=== PATIENT | female | born 2000 | race Caucasian/White ===

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

== ENCOUNTER 2022-04-04 12:20 | Outpatient (CLI) | payer MEDICAID, SELFPAY ==
--- NOTE | 2022-04-04 12:35 | XR_ITS ---
WS: [id number] XR shoulder LT min 2V* [id number] REASON FOR EXAM: L SHOULDER PAIN FINDINGS: There is slight superior displacement of the distal clavicle in relation to the acromial process whic h could indicate a grade 2 AC separation. No fracture of the clavicle or acromial process. Glenohumeral joint is intact. No fracture of the glenoid or humerus. The scapula is intact. XR/XR shoulder LT min 2V* [id number] IMPRESSION: Possible grade 2 AC separation, correlate clinically.
== END 2022-04-04 12:21 | disposition home or self-care (01) ==
LOC: RAD 12:24
PROVIDERS: Visit Provider Nurse Practitioner Family
DX: M25.512 Pain in left shoulder (principal)
CPT/HCPCS: 73030

== ENCOUNTER → 2022-04-07 11:56 | Outpatient (BNVA) | payer MEDICAID, SELFPAY | PROVIDERS: Visit Provider Student in an Organized Health Care Education/Training Program | DX: W01.0XXA Fall on same level from slipping, tripping and stumbling without subsequent striking against object, initial encounter (principal); S43.109A Unspecified dislocation of unspecified acromioclavicular joint, initial encounter | CPT/HCPCS: 99203 ==

== ENCOUNTER → 2022-04-15 08:25 | Outpatient (BNVA) | payer MEDICAID, SELFPAY | PROVIDERS: Visit Provider Obstetrics & Gynecology | DX: Z34.91 Encounter for supervision of normal pregnancy, unspecified, first trimester (principal); Z3A.11 11 weeks gestation of pregnancy | CPT/HCPCS: 76801; 80307; 81000; 85027; 86592; 86762; 86803; 86850; 86900; 87086; 87340; 87491; 87591; 87806 ==

== ENCOUNTER 2022-05-13 14:40 | Outpatient (RCR) | payer MEDICAID, SELFPAY | END 2022-05-23 23:59 | disposition home or self-care (01) | LOC: SPT 14:40 | PROVIDERS: Visit Provider Student in an Organized Health Care Education/Training Program | DX: S43.109A Unspecified dislocation of unspecified acromioclavicular joint, initial encounter (principal); X58.XXXA Exposure to other specified factors, initial encounter | CPT/HCPCS: 97161 ==

== ENCOUNTER → 2022-05-19 13:06 | Outpatient (BNVA) | payer MEDICAID, SELFPAY | PROVIDERS: Visit Provider Student in an Organized Health Care Education/Training Program | DX: S43.102A Unspecified dislocation of left acromioclavicular joint, initial encounter (principal); X58.XXXA Exposure to other specified factors, initial encounter | CPT/HCPCS: 73030 ==

== ENCOUNTER → 2022-06-16 07:47 | Outpatient (BNVA) | payer MEDICAID, SELFPAY | PROVIDERS: Visit Provider Obstetrics & Gynecology | DX: Z34.92 Encounter for supervision of normal pregnancy, unspecified, second trimester (principal); Z3A.20 20 weeks gestation of pregnancy | CPT/HCPCS: 76805 ==

== ENCOUNTER 2022-06-27 16:30 | Outpatient (CLI) | payer MEDICAID, SELFPAY ==
[2022-06-27 16:37] VITALS: BMI 28.1
[2022-06-27 16:43] VITALS: BP 111/76; PULSE 106
[2022-06-27 16:58] VITALS: BP 112/69; PULSE 99
[2022-06-27 17:13] VITALS: BP 107/69; PULSE 96
[2022-06-27 17:22] LABS: Bilirubin Urine Neg (Negative); Blood Urine Neg (Negative); Glucose Urine UA Norm (Normal); Ketones Urine Negative (Negative); Leukocyte Esterase Urine Negative (Negative); Nitrate Urine Negative (Negative); Protein Urine Neg (Negative); Urine Appearance Clear (CLEAR); Urine Color Straw (Yellow); Urobilinogen Urine Neg (Negative); pH Urine 6 (5-7)
[2022-06-27 17:28] VITALS: BP 103/55; PULSE 95
[2022-06-27 17:33] LABS: Add Urine Culture? No; Squamous Epithelial Cell Urine 0-4 /hpf (0-5)
[2022-06-27 17:43] VITALS: BP 99/54; PULSE 97
== END 2022-06-27 18:03 | disposition home or self-care (01) ==
LOC: OPOB 16:32 → OBGYN 16:37
PROVIDERS: Visit Provider Family Medicine
DX: O26.899 Other specified pregnancy related conditions, unspecified trimester (principal); R10.9 Unspecified abdominal pain
CPT/HCPCS: 81001; 99211

== ENCOUNTER 2022-07-04 00:16 | Outpatient (CLI) | payer MEDICAID, SELFPAY ==
[2022-07-04] VITALS (11 sets, daily range): BP systolic 104–132; BP diastolic 55–78; PULSE 92–100; RESP 16; TEMP 35.8–35.9; BMI 30.2
[2022-07-04 01:40] LABS: Urine Appearance Cloudy (CLEAR); Urine Color Yellow (Yellow)
[2022-07-04 01:41] LABS: Add Urine Culture? No; Bacteria Urine TRACE /hpf; Bilirubin Urine Neg (Negative); Blood Urine 3+ (Negative); Glucose Urine UA Norm (Normal); Ketones Urine Negative (Negative); Leukocyte Esterase Urine Negative (Negative); Nitrate Urine Negative (Negative); Protein Urine Trace (Negative); RBC Urine TOO NUMEROUS TO CNT /hpf (0-2); Squamous Epithelial Cell Urine 0-4 /hpf (0-5); Urobilinogen Urine Norm (Negative); WBC Urine 0-4 /hpf (0-5); pH Urine 6.5 (5-7)
--- NOTE | 2022-07-04 01:51 | USR_ITS ---
PROCEDURE INFORMATION: Exam: US , Limited Exam date and time: 07/04/2022 2:15 AM Age: 21 years old Clinical indication: Lmp or gestational age (in weeks): 22w 4d; Antepartum complications; Other: Pinkish spotting x 4 hrs. ; Additional info: Vaginal bleeding, check cervical length, placenta and nivia LABS AND CLINICAL REPORTS: Last menstrual period start date: 01/27/2022 Gestational age (Established): 22 w 4 d Estimated due date (Established): 11/03/2022 TECHNIQUE: Imaging protocol: Real-time ultrasound of the maternal uterus with image documentation. Exam focused on the clinical indication. COMPARISON: US OB >= 14 weeks fetus [id number] 06/16/2022 7:50 AM FINDINGS: Gestation: Single intrauterine gestation heart rate: 157 bpm presentation: Cephalic Placenta: Posterior and Fundal grade 0 placenta . Amniotic fluid: Amniotic fluid volume is normal. Amniotic fluid index: NIVIA is 18.4 cm. MATERNAL: Cervix: The cervix is closed and measures 4.5 cm in length. US/US OB limited [id number] IMPRESSION: 1. Single viable intrauterine gestation 2. Placenta is posterior, fundal and grade 0. 3. The cervix is closed and measures 4.5 cm in length 4. NIVIA 18.4 cm.
== END 2022-07-04 03:24 | disposition home or self-care (01) ==
LOC: OPOB 00:17 → OBGYN 00:17
PROVIDERS: Visit Provider Family Medicine
DX: O26.899 Other specified pregnancy related conditions, unspecified trimester (principal); Z3A.00 Weeks of gestation of pregnancy not specified
CPT/HCPCS: 76805; 76815; 81001; 87070; 87205; 87491; 87591; 87661; 99211

== ENCOUNTER 2022-07-26 13:58 | Outpatient (CLI) | payer MEDICAID, SELFPAY ==
[2022-07-26 14:09] VITALS: BP 132/60; PULSE 114
[2022-07-26 14:10] VITALS: BMI 29.0
[2022-07-26 14:43] VITALS: BP 123/67; PULSE 120
[2022-07-26 14:46] VITALS: BP 123/58; PULSE 117
[2022-07-26 14:54] VITALS: TEMP 37.1
== END 2022-07-26 15:00 | disposition home or self-care (01) ==
LOC: OPOB 14:00 → OBGYN 14:07
PROVIDERS: Visit Provider Family Medicine
DX: O26.899 Other specified pregnancy related conditions, unspecified trimester (principal); Z3A.00 Weeks of gestation of pregnancy not specified; Z91.81 History of falling
CPT/HCPCS: 99211

== ENCOUNTER 2022-07-26 15:00 | Emergency (ER) | payer MEDICAID, SELFPAY ==
[2022-07-26 15:44] VITALS: BP 133/76; PULSE 113; RESP 18; TEMP 37.3; O2SAT 99
--- NOTE | 2022-07-26 15:57 | ED_ITS ---
HPI - Back Pain/Injury General: Chief Complaint: Back Pain/Injury Stated Complaint: Tailbone injury, and lower back pain, 25 wks preg Time Seen by Provider: 07/26/22 15:57 History of Present Illness: tailbone pain after popping sensation when puking this am Associated symptoms: Deny abdominal pain, chills or fever(s) Review of Systems General: Reports: 10 or more systems reviewed and unremarkable except in HPI and below Const: Denies: fever(s) or chills Eyes: Denies: change in vision ENMT: Denies: throat pain Card: Denies: chest pain Resp: Denies: dyspnea, productive cough or non-productive cough GI: Denies: abdominal pain : Denies: flank pain Musc: Reports: back pain (tailbone and hips ) Skin/Breast: Denies: changes in skin color Neuro: Denies: numbness in extremities or sensory changes Psych: Denies: anxiety or depression Endo: Denies: cold intolerance or heat intolerance Michael/Lymph: Denies: easy bruising or easy bleeding PFSH ED PFSH: Medical History AC separation, type 2 Surgical History History of adenectomy History of tonsillectomy [place] teeth extracted Family History Grandfather Hypertension maternal Denies family history of Colon cancer Ovarian cancer Diabetes Clotting disorder Heart disease Hyperlipidemia Breast cancer Anesthesia complication Bleeding disorder Uterine cancer Thyroid condition Stroke Social History Smoking and tobacco status: former smoker (vaped, quit in early 2021 ) Physical Exam Const: COMMON NORMALS: no acute distress, patient oriented x3, no limitations and alert GENERAL APPEARANCE: cooperative and comfortable ORIENTATION/CONSCIOUSNESS: Yes awake, Yes oriented to person, Yes oriented to place and Yes oriented to time HENMT: COMMON NORMALS: normocephalic, atraumatic, external ears normal, EAC's normal, TM's normal bilaterally and Normal external nose present HEAD & SCALP: normal to inspection, normocephalic and atraumatic FACE & SINUS: normal facial exam, sinuses nontender and face symmetric NOSE: Normal exter nal nose present, Normal nares present and No nasal discharge present EXTERNAL EAR: Yes external ears normal EXTERNAL AUDITORY CANAL: EAC's normal TYMPANIC MEMBRANE: TM's normal bilaterally MOUTH: Normal oral and palatal mucosa present, lip normal and tongue normal THROAT: posterior oropharynx normal, tonsils normal and uvula midline Eye: COMMON NORMALS: Equal, round and reactive pupils present, EOMs intact bilaterally and conjunctivae normal GENERAL EYE: appearance normal, both eyes and all related structures and normal light reflex EYELID: eyelids normal CONJUNCTIVA: Yes conjunctivae normal PUPIL: Yes Equal, round and reactive pupils present EOM: Yes EOM abnormal DIRECT OPHTHALMOSCOPY: Yes normal light reflex Neck/C-Spine: COMMON NORMALS: full ROM, no lymphadenopathy, supple, no men ingeal signs, no JVD and Thyroid normal GENERAL: Yes normal visual inspection THYROID: Thyroid normal CERVICAL SPINE: Yes cervical ROM normal and Yes normal cervical lordosis Lymph: LYMPHATIC: no lymphadenopathy noted Chest: COMMONS NORMALS: normal inspection of the chest and normal palpation of entire chest wall Resp: COMMON NORMALS: normal respiratory effort, No retractions and clear to auscultation bilaterally AUSCULTATION: clear to auscultation bilaterally Cardio: COMMON NORMALS: no JVD, regular rate, regular rhythm, S1 normal heart sound present, S2 normal heart sound present, No gallops present (Cardio), No clicks present (Cardio), No murmurs present (Cardio), No rub (Cardio) and Peripheral pulses 2+ throughout RATE: regular rate RHYTHM: regular rhythm HEART SOUNDS: S1 normal heart sound present and S2 normal heart sound present PERIPHERAL PULSES: Peripheral pulses 2+ throughout GI: COMMON NORMALS: Normal to inspection, nondistended, normoactive bowel sounds present, Soft to palpation, non-tender and no masses PALPATION: Yes Soft to palpation : COMMON NORMALS: Yes no CVA tenderness and Yes normal external appearance BLADDER/KIDNEY EXAM: Yes no CVA tenderness Back/Pelvis: COMMON NORMALS: no CVA tenderness, thoracic and lumbar spine normal to inspection, no thoracic nor lumbar tenderness (pain with palpation at coccyx ) and thoraco-lumbar ROM normal Extremity: COMMON NORMALS: normal to inspection, full ROM, capillary refill normal, no joint enlargement, no clubbing, cyanosis or edema, no calf tenderness and no pedal edema GENERAL: Yes normal exam except as noted Neuro: COMMON NORMALS: patient oriented x3, moves all extremities, no focal motor deficits, no sensory deficits noted and gait normal SENSORIUM/ORIENTATION: Yes alert, Yes oriented to person, Yes oriented to place and Yes oriented to time MENINGEAL SIGNS: Yes no meningeal signs Psych: COMMON NORMALS: mental status grossly normal, Normal thought process present, cooperative, normal affect, speech normal and activity/motor behavior normal SPEECH: Yes normal speech THOUGHT PROCESS: Normal thought process present Skin: COMMON NORMALS: no rashes or lesions noted, no wounds and turgor normal GENERAL SKIN EXAM: no rashes or lesions noted and turgor normal Course ED course: Pt is 25 weeks , was wretching this am and felt a popping sensation in her tailbone. Has had pain since. Due to and the injury possibility itself, xray is not indicated nor is pain medication. Pt advised to use heat and ice and try to offload as much as possible. Vital Signs: Vital signs: Vital Signs Temperature 99.2 F 07/26/22 15:44 Pulse Rate 113 H 07/26/22 15:44 Respiratory Rate 18 07/26/22 15:44 Blood Pressure 133/76 07/26/22 15:44 Pulse Oximetry 99 07/26/22 15:44 MDM - Back Pain/Injury Medical Decision Making Proceed with DC and advise to rest and offload x 2 days. Discharge Plan Discharge Patient Disposition: Home Clinical Impression: Coccyx sprain Condition: Stable Prescriptions: No Action prenat.vits,serafin,[id number] Tablet 1 tab PO DAILY Discharge Orders: Discharge ED (Routine); Ordered 07/26/22 Ordered By: Vida Ann Discharge Diet: Usual diet Discharge Activity: Increase activity as tolerated Patient Instructions: Opioid Safety, Pain Management Activity Restrictions/Additional Instructions: May return to work on Thursday. Tumeric 600 mg daily to help with pain Small pool float donut for sitting Coding Level of Care Code ED Clinical Research Manager for Alicia Navas
[2022-07-26 16:37] VITALS: PULSE 118; RESP 18; O2SAT 100
== END 2022-07-26 16:39 | disposition home or self-care (01) ==
PROVIDERS: Emergency Provider Nurse Practitioner Family
DX: O9A.212 Injury, poisoning and certain other consequences of external causes complicating pregnancy, second trimester (principal); S33.8XXA Sprain of other parts of lumbar spine and pelvis, initial encounter; Z87.891 Personal history of nicotine dependence; Z3A.25 25 weeks gestation of pregnancy; X58.XXXA Exposure to other specified factors, initial encounter
CPT/HCPCS: 99282

== ENCOUNTER 2022-09-14 10:22 | Outpatient (CLI) | payer MEDICAID, SELFPAY ==
[2022-09-14 10:34] VITALS: RESP 16; TEMP 36.5
[2022-09-14 10:35] VITALS: BMI 30.4
[2022-09-14 10:41] VITALS: BP 115/68; PULSE 90
[2022-09-14 10:56] VITALS: BP 115/66; PULSE 102
[2022-09-14 11:11] VITALS: BP 109/59; PULSE 96
[2022-09-14 11:26] VITALS: BP 106/59; PULSE 101
== END 2022-09-14 11:48 | disposition home or self-care (01) ==
LOC: OPOB 10:27 → OBGYN 10:28
PROVIDERS: Visit Provider Family Medicine
DX: O26.899 Other specified pregnancy related conditions, unspecified trimester (principal); Z3A.00 Weeks of gestation of pregnancy not specified; R10.9 Unspecified abdominal pain
CPT/HCPCS: 59025; 99211

== ENCOUNTER 2022-10-05 10:05 | Outpatient (CLI) | payer MEDICAID, SELFPAY ==
[2022-10-05 10:02] VITALS: BMI 31.1
[2022-10-05 10:09] VITALS: RESP 15
[2022-10-05 10:16] VITALS: BP 116/77; PULSE 93
[2022-10-05 10:26] LABS: Nitrazine Paper, PH Negative
== END 2022-10-05 10:40 | disposition home or self-care (01) ==
LOC: OPOB 10:06 → OBGYN 10:07
PROVIDERS: Visit Provider Family Medicine
DX: O26.899 Other specified pregnancy related conditions, unspecified trimester (principal); Z3A.00 Weeks of gestation of pregnancy not specified; N89.8 Other specified noninflammatory disorders of vagina
CPT/HCPCS: 83986

== ENCOUNTER 2022-10-29 10:07 | Inpatient (IN) | payer MEDICAID, SELFPAY ==
[2022-10-29] VITALS (18 sets, daily range): BP systolic 115–131; BP diastolic 63–82; PULSE 85–121; RESP 16–18; TEMP 36.1–36.9; BMI 32.8
[2022-10-29 13:00] LABS: Basophils % 0.2 %; Eosinophils # 0.1 10^3/uL (0.0-0.8); Eosinophils % 0.6 %; Hematocrit 32.1 % (37.0-47.0); Hemoglobin 10.2 g/dL (11.5-15.3); Lymphocytes # 1.4 10^3/uL (0.8-4.8); Lymphocytes % 15.7 %; Mean Corpuscular HGB Conc 31.8 g/dL (30.0-36.0); Mean Corpuscular Volume 81.9 fl (81-99); Mean Platelet Volume 11.4 fL (7.4-10.4); Monocytes # 0.4 10^3/uL (0.2-0.9); Monocytes % 4.7 %; Neutrophils # 6.78 10^3/uL (1.8-7.7); Neutrophils % 78.2 %; Nucleated Red Blood Cells % 0 %; Platelet Count 238 10^3/cmm (130-400); Red Blood Count 3.92 10^6/uL (4.1-5.3); Red Cell Distribution Width 15.9 % (12.1-15.1); White Blood Count 8.7 10^3/uL (4.0-10.0)
--- NOTE | 2022-10-29 15:00 | P.HP_ITS ---
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 Denies cramping/contractions, vaginal bleeding. Good movement. care was good and starting in first trimester. Prior remarkable for PROM at 37 weeks, PMHx anxiety- she is taking buspirone and bupropion started by MFM. course complicated by episode vaginal bleeding in 2nd trimester this resolved without intervention, and anatomy US with echogenic cardiac focus. She has been followed with MFM, monitoring left lateral ventricle size and right clubfoot as well present on MFM ultrasound. EIF noted to not be as bright as bone and no further follow-up necessary. Left lateral ventricle size has been variable and reported as mild with no further recommendations given. Interval growth and measurements have been wnl. Plan for referral outpatient for right clubfoot. Present Details : 2 Para: 1 Labs Blood type OB HPI: AB (+) positive Rubella: Immune RPR: Negative GBS: Negative HBsAG: Negative Other Lab Information: HIV neg 3rd trimester H/H 10.9/32.1 1hr GTT 119 passed Review of Systems Const: Denies: fever(s) or chills Card: Denies: chest pain or palpitations Resp: Denies: dyspnea or productive cough : Denies: vaginal bleeding Medications/Allergies Home Medications Medication Instructions Recorded Confirmed Last Taken Type prenat.vits,serafin,yep-emru-vppcp 1 tab PO DAILY 04/15/22 09/14/22 10/29/22 08:00 History buspirone 5 mg tablet 5 mg PO BID 09/14/22 09/14/22 10/29/22 08:00 History Vitamin C 10/05/22 1 Day Ago History ~10/04/22 bupropion HCl 10/05/22 10/29/22 08:00 History ferrous sulfate 325 mg (65 mg mg PO 10/05/22 10/29/22 08:00 History iron) capsule,extended release Allergies Allergy/AdvReac Type Severity Reaction Status Date / Time amoxicillin [From Amoxil] Allergy ALGY-Hives Verified 10/05/22 15:24 Penicillins Allergy hives Verified 10/05/22 15:24 PFSH PHARMACY BENEFITS COORDINATOR PFSH: Medical History AC separation, type 2 Surgical History History of adenectomy History of tonsillectomy [place] teeth extracted Family History Grandfather Hypertension maternal Denies family history of Colon cancer Ovarian cancer Diabetes Clotting disorder Heart disease Hyperlipidemia Breast cancer Anesthesia complication Bleeding disorder Uterine cancer Thyroid condition Stroke Social History Smoking and tobacco status: former smoker (vaped, quit in early 2021 ) History History History 2 Term 1 0 Miscarriages/Ectopic 0 Living Children 1 Care 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 Estimated Delivery Date Method Current WG Current Estimate 11/03/22 Ultrasound #1 39w 2d Other Estimates 10/07/22 LMP (Uncertain) 43w 1d Vitals/I&O/Wt Last Vital Signs Temp 97.2 F L 10/29/22 15:41 Pulse 88 10/29/22 15:41 Resp 18 10/29/22 15:41 BP 131/63 10/29/22 15:41 O2 Del Method 10/29/22 10:15 Weight last 48 hrs Weight 174 lb Physical Exam Const: COMMON NORMALS: no acute distress, healthy appearing and alert Resp: COMMON NORMALS: normal respiratory effort and clear to auscultation bilaterally Cardio: COMMON NORMALS: regular rate, regular rhythm, S1 normal heart sound present and S2 normal heart sound present Extremity: NARRATIVE EXTREMITY EXAM: trace LE edema bilaterally Psych: COMMON NORMALS: mental status grossly normal, normal affect and speech normal Skin: COMMON NORMALS: no rashes or lesions noted Data 10/29/22 12:45 A&P Assessment and plan (1) PROM (premature rupture of membranes): 22yo admitted for PROM at 39w2d. Discussed with patient risks and benefits of labor induction due to PROM and risks of not inducing labor at this time including but not limited to infection, nonreassuring FHT. Patient would like to wait at least 12 hours prior to initiation of pitocin if contractions have not started. Routine vital signs, admission CBC. Intermittent EFM provided Category 1 FHT. SVE as indicated. (2) Term : (3) Depression with anxiety: Taking buspirone and bupropion- follow (4) Club foot of fetus: Plan for outpatient referral. Followed with MFM prenatally- NIPT was low risk. (5) Ventriculomegaly of brain on ultrasound: Followed with MFM- reported as mild. No further MFM recommendations. Attestations Medical Necessity Statement*: [facility] require greater than 2 midnights for routine labor and delivery and care. Coding Level of Care Code Acute Code for Chg Fwd Diagnoses PROM (premature rupture of membranes) O42.90 Term Z34.90 Depression with anxiety F41.8 Club foot of fetus Ventriculomegaly of brain on ultrasound
[2022-10-29] MEDS: hyDROXYzine 25 mg Capsule 50 MG PO (20:19)
[2022-10-29] MEDS: ondansetron 2 mg/ML SDV 2 mL 4 MG IVP (20:20)
[2022-10-29] MEDS: oxytocin 30 UNIT/500 ML BAG 600 UNIT IV (23:58)
[2022-10-29] MEDS: dextrose 5%-lactated ringers 1,000 ML 125 ML IV (23:58)
[2022-10-30] VITALS (19 sets, daily range): BP systolic 100–128; BP diastolic 57–85; PULSE 72–102; RESP 15–17; TEMP 36.6–36.9; O2SAT 97–99
[2022-10-30] MEDS: fentaNYL 50 mcg/mL INJ 2mL IVP (00:21)
[2022-10-30] MEDS: lidocaine 2% INJ 20 mL INJECTION (00:27)
--- NOTE | 2022-10-30 00:40 | PM.DELIVERY ---
Delivery Note: Date of delivery: October 30, 2022 Pre-delivery diagnoses: PROM Term Post-delivery diagnoses: PROM Term delivery of female Procedure: Spontaneous Vaginal Delivery Delivering Physician: Isela Quiroz DO Estimated blood loss (mL): 300 Pre-Delivery Course: Patient admitted after SROM at home at approx 0820 on 10/29/22 with clear fluid at 2/50/-3. Expectantly managed and contractions gradually started and she progressed to 4/75/-3 at about 12 hours after ROM. Then progressed quickly to complete over an additional 4 hours. Delivery: Patient progressed to complete. Patient placed in lithotomy position. Patient pushed with adequate effort. Head delivered in RHETT position, no nuchal cord was present. Shoulders and rest of body delivered without difficulty with no anesthesia. Mouth and nares bulb suctioned. placed on maternal abdomen. Cord clamped and cut after 2.5 minute delay. Placenta spontaneously delivered and intact. Pitocin started. Fundus was noted to be firm. The vagina and cervix were inspected and midline 2nd degree laceration was noted. Repaired with 3-0 Vicryl with local anesthesia lidocaine 1% for anesthesia. Fundus was again noted to be firm however with intermittent trickle bleeding. After fentanyl dose for pain control, lower uterine segment swept free of clots and small piece of retained membrane noted. Following bleeding noted to decrease significantly and fundus continued to be firm. Female born at 2354 with 8/9 weighing 7lb 6oz and measuring 17.5 inches in length Placenta noted to be intact with centrally inserted umbilical cord and 3 vessel cord. Complications: Maternal none Infant none History History History 2 Term 2 0 Miscarriages/Ectopic 0 Living Children 2 Coding Level of Care Code Acute Code for Chg Fwd
[2022-10-30] MEDS: lanolin oint 7 gm 1 APPLIC TOPICAL (05:28)
[2022-10-30] MEDS: benzocaine-menthol 78 gm Canister 1 SPRAY TOPICAL (05:28)
--- NOTE | 2022-10-30 07:40 | PM.OBGYPN ---
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 Was able to get a couple of hours of sleep. Had some snack foods last night without nausea/vomiting. Bleeding is minimal. - baby has latched a couple times. Normal urination. Has some soreness and pain with much movement, but overall pain is controlled. Labor: Station: +1 Amniotic Membrane Status: Ruptured Monitor Mode: Palpation Contraction Pattern: Regular Vitals/I&O/Wt Last Vital Signs Temp 98.4 F 10/30/22 05:05 Pulse 72 10/30/22 05:05 Resp 16 10/30/22 05:05 BP 108/67 10/30/22 05:05 O2 Del Method 10/30/22 03:15 10/29/22 10/30/22 10/30/22 22:59 06:59 14:59 Intake Total 200 / 200 Output Total 250 / 250 Balance -50 / -50 Weight last 48 hrs Weight 174 lb Physical Exam Const: COMMON NORMALS: no acute distress, healthy appearing and alert Resp: COMMON NORMALS: normal respiratory effort and clear to auscultation bilaterally AUSCULTATION: clear to auscultation bilaterally Cardio: COMMON NORMALS: regular rate, regular rhythm, S1 normal heart sound present and S2 normal heart sound present RATE: regular rate RHYTHM: regular rhythm HEART SOUNDS: S1 normal heart sound present and S2 normal heart sound present : OTHER: uterine fundus firm and below the umbilicus Extremity: NARRATIVE EXTREMITY EXAM: trace LE edema bilaterally Neuro: SENSORIUM/ORIENTATION: Yes alert Psych: COMMON NORMALS: mental status grossly normal, normal affect and speech normal SPEECH: Yes normal speech Skin: COMMON NORMALS: no rashes or lesions noted GENERAL SKIN EXAM: no rashes or lesions noted Data 10/29/22 12:45 A&P Assessment and plan (1) Spontaneous vaginal delivery: PPD#1 s/p after PROM. Doing well- encourage ambulation, bonding with , normal diet. Routine vitals and hemagram. Anticipate discharge home tomorrow. (2) PROM (premature rupture of membranes): Ultimately approx 16 hours ruptured prior to delivery. No s/sx sepsis or uterine infection. Continue routine vitals and monitoring for s/sx infection. (3) Depression with anxiety: Continue home buspirone and bupropion. (4) Anemia: Continue iron supplementation. Attestations Medical Necessity Statement*: Fabiola Wharton's hospital stay will require greater than 2 midnights for routine labor and delivery and care. Coding Level of Care Code Acute Code for Chg Fwd Diagnoses Spontaneous vaginal delivery O80 PROM (premature rupture of membranes) O42.90 Depression with anxiety F41.8 Anemia D64.9
[2022-10-30] MEDS: docusate sodium 100 mg Capsule PO ×2 (08:20→21:32)
[2022-10-30] MEDS: ibuprofen 800 mg tablet PO ×3 (08:20→21:32)
[2022-10-30] MEDS: prenatal vitamin Capsule 1 CAP PO (08:20)
[2022-10-30] MEDS: ferrous sulfate EC 325 mg Tablet PO (08:24)
[2022-10-30] MEDS: BuSPIRONE 10 mg Tablet 5 MG PO ×2 (08:25→21:33)
[2022-10-30] MEDS: buPROPion XL (24 HR) 150 mg Tablet PO (08:25)
[2022-10-30 13:01] LABS: Hematocrit 30.7 % (37.0-47.0); Hemoglobin 9.7 g/dL (11.5-15.3); Mean Corpuscular HGB Conc 31.6 g/dL (30.0-36.0); Mean Corpuscular Hemoglobin 25.9 pg (28.0-34.0); Mean Corpuscular Volume 81.9 fl (81-99); Mean Platelet Volume 11.6 fL (7.4-10.4); Platelet Count 262 10^3/cmm (130-400); Red Blood Count 3.75 10^6/uL (4.1-5.3); White Blood Count 10.8 10^3/uL (4.0-10.0)
[2022-10-31] MEDS: acetaminophen 325 mg Tablet 650 MG PO (04:02)
[2022-10-31 04:56] VITALS: BP 123/77; PULSE 79; RESP 15; O2SAT 98
[2022-10-31 09:00] VITALS: BP 127/85; PULSE 85; RESP 16; TEMP 36.7; O2SAT 98
[2022-10-31] MEDS: ferrous sulfate EC 325 mg Tablet PO (09:27)
[2022-10-31] MEDS: docusate sodium 100 mg Capsule PO (09:27)
[2022-10-31] MEDS: BuSPIRONE 10 mg Tablet 5 MG PO (09:28)
[2022-10-31] MEDS: ibuprofen 800 mg tablet PO (09:28)
[2022-10-31] MEDS: prenatal vitamin Capsule 1 CAP PO (09:28)
[2022-10-31] MEDS: buPROPion XL (24 HR) 150 mg Tablet PO (09:34)
--- NOTE | 2022-10-31 12:09 | P.DS_ITS ---
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 Patient admitted after SROM at home at 39w2d at approx 0820 on 10/29/22 with clear fluid at 2/50/-3. Expectantly managed and contractions gradually started and she progressed to 4/75/-3 at about 12 hours after ROM. Then progressed quickly to complete over an additional 4 hours. Delivery:?? Patient progressed to complete. Patient placed in lithotomy position. Patient pushed with adequate effort. Head delivered in RHETT position, n o nuchal cord was present. Shoulders and rest of body delivered without difficulty with no anesthesia. Mouth and nares bulb suctioned.? placed on maternal abdomen. Cord clamped and cut after 2.5 minute delay. Placenta spontaneously delivered and intact. Pitocin started.? Fundus was noted to be firm. The vagina and cervix were inspected and midline 2nd degree laceration was noted. Repaired with 3-0 Vicryl with local anesthesia lidocaine 1% for anesthesia. Fundus was again noted to be firm however with intermittent trickle bleeding. After fentanyl dose for pain control, lower uterine segment swept free of clots and small piece of retained membrane noted. Following bleeding noted to decrease significantly and fundus continued to be firm. Female born at 2354 with 8/9 weighing 7lb 6oz and measuring 17.5 inches in length Placenta noted to be intact with centrally inserted umbilical cord and 3 vessel cord. Complications: Maternal none ? none Post-Delivery Course: Patient underwent on 10/29/22. course was uncomplicated. Following delivery patient ambulated well, tolerated a normal diet without nausea or vomiting. Pain was well controlled on PO medications, well, no leg/calf pain, no calf/leg swelling, normal urination, passing gas and normal bowel movements. Vaginal bleeding thin lochia and decreasing. labs Hgb 10.2 on admission and decreased to 9.7 . Continued on iron supplementation. Follow-up planned for 2 and 6 weeks . Warning signs for endometritis, pre-eclampsia, DVT/PE, mastitis were reviewed, discussed additional warning signs including increased vaginal bleeding, worsening abdominal pain. Pelvic rest and activity precautions reviewed as well. She is discharged on 10/31/22 in stable condition. Information Peripartum Data: Infant Delivery Method: Vaginal Physical Exam Const: COMMON NORMALS: no acute distress, healthy appearing and alert Resp: COMMON NORMALS: normal respiratory effort and clear to auscultation bilaterally AUSCULTATION: clear to auscultation bilaterally Cardio: COMMON NORMALS: regular rate, regular rhythm, S1 normal heart sound present and S2 normal heart sound present RATE: regular rate RHYTHM: regular rhythm HEART SOUNDS: S1 normal heart sound present and S2 normal heart sound present : OTHER: uterine fundus firm and below the umbilicus Extremity: NARRATIVE EXTREMITY EXAM: trace LE edema bilaterally Neuro: SENSORIUM/ORIENTATION: Yes alert Psych: COMMON NORMALS: mental status grossly normal, normal affect and speech normal SPEECH: Yes normal speech Skin: COMMON NORMALS: no rashes or lesions noted GENERAL SKIN EXAM: no rashes or lesions noted History History History 2 Term 2 0 Miscarriages/Ectopic 0 Living Children 2 Discharge Data Studies Completed and Pending Laboratory Results WBC 10.8 10^3/uL (4.0-10.0) H 10/30/22 12:45 Corrected WBC Cancelled 10/29/22 11:25 RBC 3.75 10^6/uL (4.1-5.3) L 10/30/22 12:45 Hgb 9.7 g/dL (11.5-15.3) L 10/30/22 12:45 Hct 30.7 % (37.0-47.0) L 10/30/22 12:45 MCV 81.9 fl (81-99) 10/30/22 12:45 MCH 25.9 pg (28.0-34.0) L 10/30/22 12:45 MCHC 31.6 g/dL (30.0-36.0) 10/30/22 12:45 RDW 16.0 % (12.1-15.1) H 10/30/22 12:45 Plt Count 262 10^3/cmm (130-400) 10/30/22 12:45 MPV 11.6 fL (7.4-10.4) H 10/30/22 12:45 Gran % Cancelled 10/29/22 11:25 Neut % (Auto) 78.2 % 10/29/22 12:45 Lymph % (Auto) 15.7 % 10/29/22 12:45 [place] % (Auto) 4.7 % 10/29/22 12:45 Eos % (Auto) 0.6 % 10/29/22 12:45 Baso % (Auto) 0.2 % 10/29/22 12:45 Neut # (Auto) 6.78 10^3/uL (1.8-7.7) 10/29/22 12:45 Lymph # (Auto) 1.4 10^3/uL (0.8-4.8) 10/29/22 12:45 [place] # (Auto) 0.4 10^3/uL (0.2-0.9) 10/29/22 12:45 Eos # (Auto) 0.1 10^3/uL (0.0-0.8) 10/29/22 12:45 Baso # (Auto) 0.0 10^3/uL (0.0-0.1) 10/29/22 12:45 Absolute Gran (auto) Cancelled 10/29/22 11:25 Nucleated RBC % (auto) 0 % 10/29/22 12:45 Nucleated RBCs # 0.0 /100WBC 10/29/22 12:45 Vitals Last Vital Signs Temp 98.1 F 10/31/22 09:00 Pulse 85 10/31/22 09:00 Resp 16 10/31/22 09:00 BP 127/85 10/31/22 09:00 Pulse Ox 98 10/31/22 09:00 O2 Del Method 10/31/22 09:00 Discharge Plan Discharge Patient Disposition: Home Condition: Stable Prescriptions: New ibuprofen 800 mg Tablet 800 mg PO TID Qty: 90 0RF docusate sodium 100 mg Capsule 100 mg PO BID Qty: 60 0RF Continued prenat.vits,serafin,zqa-bycr-bwrbk Tablet 1 tab PO DAILY ferrous sulfate 325 mg (65 mg iron) Capsule, Extended Release 325 mg PO BID buspirone 5 mg tablet 5 mg PO BID bupropion HCl 150 mg tablet extended release 24 hr 150 mg PO DAILY Discharge Orders: Discharge Order (Routine); Ordered 10/31/22 Ordered By: Isela Quiroz Discharge Diet: Regular Discharge Activity: Increase activity as tolerated Patient Instructions: Depression (GEN), Perineal Care (GEN), Bleeding (GEN), Preeclampsia and Eclampsia After Delivery (G EN), OB Discharge Report, OB Food/Drug Interaction Guide, OB Home Care Instructions, OB Care at Home, Opioid Safety, OB Home Care, OB Proud Parent Packet, Abnormal Bleeding, Depression Activity Restrictions/Additional Instructions: Follow-up with Dr. Quiroz at 2 and 6 weeks . Pelvic rest for 6 weeks. 2 week appointment is scheduled for 11/12/22 at 10:30am at Dr. Quiroz's office. 6 week appointment is scheduled for 12/31/22 at 10:00am at Dr. Quiroz's office. 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
[2022-10-31 14:26] VITALS: BP 121/81; PULSE 84; TEMP 36.9; O2SAT 97
[2022-10-31 15:14] VITALS: BP 121/81; PULSE 84; RESP 16; TEMP 36.9; O2SAT 97
== END 2022-10-31 15:20 | disposition home or self-care (01) | DRG 807 ==
LOC: OBGYN 10-30 00:42 → OPOB 10-31 09:54
PROVIDERS: Admitting Provider Family Medicine; Visit Provider Family Medicine
DX: O42.02 Full-term premature rupture of membranes, onset of labor within 24 hours of rupture (principal); Z37.0 Single live birth; O99.344 Other mental disorders complicating childbirth; F41.8 Other specified anxiety disorders; O99.02 Anemia complicating childbirth; D64.9 Anemia, unspecified; O70.1 Second degree perineal laceration during delivery; Z3A.39 39 weeks gestation of pregnancy; Z87.891 Personal history of nicotine dependence
CPT/HCPCS: 36415; 59025; 59409; 83986; 85025; 85027; 96374; 99211; J2405; J2590; J3010; J7121

== ENCOUNTER 2023-06-22 13:19 | Outpatient (CLI) | payer MEDICAID, SELFPAY ==
--- NOTE | 2023-06-22 | XRR_ITS ---
PROCEDURE INFORMATION: Exam: XR Chest Exam date and time: 06/22/2023 1:23 PM Age: 22 years old Clinical indication: Cough; Patient HX: Congestion x 2 months.No history of trauma or recent surgery is provided. TECHNIQUE: Imaging protocol: Radiologic exam of the chest. 2image(s) are provided. Views: 2 views. COMPARISON: CR XR shoulder LT min 2V* [id number] 05/19/2022 1:08 PM. No previous chest radiograph is currently available. FINDINGS: Lungs: No interval lobar consolidation is appreciated. Pleural spaces: No pneumothorax or significant pleural effusion is appreciated. Heart/Mediastinum: The cardiomediastinal silhouette is within normal. No cardiac decompensation is appreciated. Diaphragm: The hemidiaphragms are symmetric. Bones/joints: Osseous alignment is maintained.No displaced fracture or dislocation is appreciated. There appear to be some minimal chronic appearing rib deformities on the left. Soft tissues: No radiopaque foreign body or subcutaneous emphysema is appreciated. Other findings: No other significant interval changes are appreciated. XR/XR chest 2V* [id number] IMPRESSION: No lobar consolidation is appreciated.No acute cardiopulmonary changes are appreciated.
== END 2023-06-22 13:20 | disposition home or self-care (01) ==
PROVIDERS: PCP Family Medicine; Visit Provider Nurse Practitioner Family
DX: R05.3 Chronic cough (principal); R09.89 Other specified symptoms and signs involving the circulatory and respiratory systems
CPT/HCPCS: 71046

== ENCOUNTER → 2024-08-04 14:20 | Outpatient (BNVA) | payer MEDICAID, SELFPAY | PROVIDERS: PCP Family Medicine; Referring Provider Family Medicine; Visit Provider Internal Medicine Cardiovascular Disease | DX: R07.9 Chest pain, unspecified (principal) | CPT/HCPCS: 93005 ==

== ENCOUNTER 2025-03-10 07:57 | Outpatient (CLI) | payer BC, MEDICAID, SELFPAY ==
--- NOTE | 2025-03-10 08:05 | US_ITS ---
WS: [id number] RIGHT UPPER QUADRANT ULTRASOUND HISTORY: RUQ PAIN COMPARISON: None available. Liver: 12.8 cm in length. Normal size liver and echogenicity. No bile duct dilatation or mass. Portal Vein: Normal hepatopetal flow with monophasic waveform. Gallbladder: Normally distended gallbladder with no stones or wall thickening. CBD: 0.3 cm Pancreas: Normal size and echogenicity. Right kidney: 10.0 cm in length. Normal size and echogenicity. No hydronephrosis or mass. Aorta and IVC: Unremarkable abdominal aorta and IVC. No ascites. US/US abdomen limited [id number] IMPRESSION: Normal right upper quadrant ultrasound.
== END 2025-03-10 07:58 | disposition home or self-care (01) ==
LOC: RAD 07:59
PROVIDERS: PCP Family Medicine; Visit Provider Family Medicine
DX: R10.11 Right upper quadrant pain (principal)
CPT/HCPCS: 76705

== ENCOUNTER 2025-06-25 14:07 | Emergency (ER) | payer BC, MEDICAID, SELFPAY ==
[2025-06-25 14:20] VITALS: BP 120/77; PULSE 80; RESP 14; TEMP 36.7; O2SAT 99
--- NOTE | 2025-06-25 14:34 | CTR_ITS ---
PROCEDURE INFORMATION: Exam: CT Head Without Contrast Exam date and time: 06/25/2025 3:39 PM Age: 24 years old Clinical indication: Injury or trauma; Other: Fall from horse; Blunt trauma (contusions or hematomas); Without loss of consciousness TECHNIQUE: Imaging protocol: Computed tomography of the head without contrast. Radiation optimization: All CT scans at this facility use at least one of these dose optimization techniques: automated exposure control; mA and/or kV adjustment per patient size (includes targeted exams where dose is matched to clinical indication); or iterative reconstruction. COMPARISON: CT cervical spin wo con* [id number] 06/25/2025 3:39 PM RADIATION DOSE METRICS: Total DLP (mGy-cm): 851.5 FINDINGS: Brain: Normal. No hemorrhage. Unremarkable white matter. No mass effect. Cerebral ventricles: No ventriculomegaly. Paranasal sinuses: Visualized sinuses are unremarkable. No fluid levels. Mastoid air cells: Visualized mastoid air cells are well aerated. Bones: Unremarkable. No acute fracture. Soft tissues: Unremarkable. CT/CT head wo con* [id number] IMPRESSION: No acute intracranial abnormality.
--- NOTE | 2025-06-25 14:34 | XRR_ITS ---
PROCEDURE INFORMATION: Exam: XR Thoracic Spine Exam date and time: 06/25/2025 2:48 PM Age: 24 years old Clinical indication: Injury or trauma; Other: Fell off horse; Blunt trauma (contusions or hematomas); Additional info: Fall from horse TECHNIQUE: Imaging protocol: Radiologic exam of the thoracic spine. Views: 3 views. COMPARISON: CR XR chest 2V* [id number] 06/22/2023 1:23 PM FINDINGS: Bones/joints: Normal. No acute fracture. Normal alignment. Soft tissues: Unremarkable. XR/XR thoracic spine 3V* [id number] IMPRESSION: No acute findings.
--- NOTE | 2025-06-25 14:34 | ED_ITS ---
HPI - Fall General: Chief Complaint: Fall Stated Complaint: Fall off horse Time Seen by Provider: 06/25/25 14:26 Source: patient Mode of arrival: ambulatory Limitations: no limitations History of Present Illness: Patient is a 24-year-old female presents to ED today for evaluation after falling off of her horse several hours ago. Patient states after she fell off she was able to get back up and continue riding but states when she got home the soreness set it . She states when she fell she did strike her head. No LOC. She does complain of some lower neck/upper back pain. She has been ambulatory without difficulty or assistance since the fall. She is not having any chest pain, shortness of breath, difficulty breathing. No abdominal pain. MD complaint: fall Onset (ago): hour(s) Fall from: other (horse) Fall witnessed: yes, by bystander Place fall occurred: other (outdoors) Loss of consciousness: None Prolonged down time: no Symptoms prior to fall: none Context: other (thrown from horse) Location of injury: head, neck and back Associated symptoms-after fall: Reports no associated symptoms, headache(s) and neck pain; Denies abdominal pain, chest pain, hematuria or lightheadedness Related Data Previous Rx's ?Medication ?Instructions ?Recorded metoprolol succinate 25 mg 12.5 mg (1/2 x 25 mg) PO DA ARACELI #45 08/04/24 tablet,extended release 24 hr tabs Allergies Allergy/AdvReac Type Severity Reaction Status Date / Time amoxicillin (From Amoxil) Allergy ALGY-Hives Verified 06/25/25 14:24 Penicillins Allergy hives Verified 06/25/25 14:24 Review of Systems Eyes: Denies: change in vision, blurry vision, photophobia, eye discharge, floaters or seeing flashes ENMT: Denies: throat pain, odynophagia, ear or mastoid pain, ear discharge, nasal discharge, epistaxis or sinus pain Card: Denies: chest pain, palpitations, lightheadedness, syncope or pre- syncope Resp: Denies: dyspnea or pain on inspiration GI: Denies: abdominal pain : Denies: flank pain or hematuria Musc: Reports: neck pain and back pain; Denies: extremity pain or joint pain Neuro: Reports: headache(s); Denies: numbness in extremities, weakness in extremities, sensory changes or dizziness [facility] PFSH: Medical History PROM (premature rupture of membranes) AC separation, type 2 Surgical History History of tonsillectomy Puryear teeth extracted History of adenectomy Family History Grandfather Hypertension maternal Denies family history of Colon cancer Ovarian cancer Diabetes Clotting disorder Heart disease Hyperlipidemia Breast cancer Anesthesia complication Bleeding disorder Uterine cancer Thyroid disease Stroke Social History Smoking and tobacco/nicotine status: former use of tobacco/nicotine Physical Exam Const: COMMON NORMALS: no acute distress, average body habitus, patient oriented x3, no limitations, healthy appearing, alert and well nourished GENERAL APPEARANCE: cooperative ORIENTATION/CONSCIOUSNESS: Yes awake, Yes oriented to person, Yes oriented to place and Yes oriented to time HENMT: COMMON NORMALS: normocephalic, atraumatic and TM's normal bilaterally HEAD & SCALP: normal to inspection, normocephalic and atraumatic; no Gilmore's sign, no hematoma and no raccoon eyes FACE & SINUS: normal facial exam TYMPANIC MEMBRANE: TM's normal bilaterally MOUTH: other (no intraoral injuries noted) Eye: COMMON NORMALS: Equal, round and reactive pupils present and EOMs intact bilaterally GENERAL EYE: appearance normal, both eyes and all related structures and normal light reflex PUPIL: Yes Equal, round and reactive pupils present DIRECT OPHTHALMOSCOPY: Yes normal light reflex Neck/C-Spine: COMMON NORMALS: full ROM GENERAL: Yes normal visual inspection CERVICAL SPINE: Yes cervical ROM normal, Yes pain with cervical ROM, Yes Cervical spine tenderness (lower c spine), No step off deformity, No Paracervical muscle tenderness, No Trapezius muscle tenderness and No Lhermitte's sign positive Chest: COMMONS NORMALS: normal inspection of the chest and normal palpation of entire chest wall Resp: COMMON NORMALS: normal respiratory effort and clear to auscultation bilaterally AUSCULTATION: clear to auscultation bilaterally Cardio: COMMON NORMALS: regular rate and regular rhythm RATE: regular rate RHYTHM: regular rhythm GI: COMMON NORMALS: Normal to inspection, nondistended, normoactive bowel sounds present, Soft to palpation, non-tender, No hepatosplenomegaly present and no masses INSPECTION: Yes normal to inspection and No abdominal wall ecchymosis AUSCULTATION: Yes normoactive bowel sounds PALPATION: Yes Soft to palpation and Yes No hepatosplenomegaly present : COMMON NORMALS: Yes no CVA tenderness BLADDER/KIDNEY EXAM: Yes no CVA tenderness Back/Pelvis: COMMON NORMALS: no CVA tenderness, thoracic and lumbar spine normal to inspection, thoraco-lumbar ROM normal and straight leg raise negative bilaterally THORACIC SPINE/UPPER BACK: Yes thoracic spinal tenderness (upper t spine) and No paraspinal muscle tenderness LUMBAR SPINE/LOWER BACK: No lumbar spinal tenderness and No paraspinal muscle tenderness Extremity: COMMON NORMALS: normal to inspection and full ROM GENERAL: Yes normal exam except as noted Neuro: ROSIE COMA SCALE: document GCS findings [place] coma scale eye opening: Spontaneous [place] coma scale verbal response: Orientated Rosie coma scale motor response: Obey commands [place] coma scale total score: 15 COMMON NORMALS: patient oriented x3, CN's II-XII intact bilaterally, moves all extremities, no focal motor deficits, no sensory deficits noted and gait normal SENSORIUM/ORIENTATION: Yes alert, Yes oriented to person, Yes oriented to place and Yes oriented to time SPEECH: speech normal GAIT: Yes Normal gait present Skin: COMMON NORMALS: no rashes or lesions noted GENERAL SKIN EXAM: no rashes or lesions noted TRAUMA: no lacerations or abrasions Course Vital Signs: Vital signs: Vital Signs Temperature 98.0 F 06/25/25 14:20 Pulse Rate 86 06/25/25 15:46 Respiratory Rate 14 06/25/25 14:20 Blood Pressure 112/70 06/25/25 15:46 Pulse Oximetry 97 06/25/25 15:46 Oxygen Delivery Me thod Room Air 06/25/25 14:20 MDM - Fall Medical Decision Making CT imaging of head/cervical spine and XR of thoracic spine was obtained based on her complaint and these are unremarkable. Patient will allowed discharge. Return precautions discussed. Medical Records I reviewed the patient's medical records. Lab Data Radiology Impressions Cervical Spine CT 06/25/25 14:34 IMPRESSION: No acute cervical spine fracture. Head CT 06/25/25 14:34 IMPRESSION: No acute intracranial abnormality. Thoracic Spine X-Ray 06/25/25 14:34 IMPRESSION: No acute findings. All radiology interpretation(s) finalized by discharge Discharge Plan Discharge Patient Disposition: Home Clinical Impression: Fall from horse Qualifiers: Encounter type: initial encounter Qualified Code(s): V80.010A - Animal-rider injured by fall from or being thrown from horse in noncollision accident, initial encounter Cervical sprain Qualifiers: Encounter type: initial encounter Qualified Code(s): S13.9XXA - Sprain of joints and ligaments of unspecified parts of neck, initial encounter Condition: Stable Prescriptions: No Action metoprolol succinate 25 mg tablet extended release 24 hr 12.5 mg PO DAILY Qty: 45 3RF Discharge Orders: Discharge ED (Routine); Ordered 06/25/25 Ordered By: Mechelle Mancera Referrals: Isela Quiroz DO [Primary Care Provider, [employer]ICER] Patient Instructions: Patient Portal & [facility] Instructions Activity Restrictions/Additional Instructions: As we discussed imaging of your head, cervical spine, thoracic spine were obtained today and unremarkable. We discussed conservative treatment for discomfort at home. Recommend follow-up with primary care in 1 to 2 weeks if symptoms are not improving. You may return to the emergency department at anytime for any further concerns you may have. Print Language: Japanese Coding Level of Care Code ED Tie Fastener for Alicia Navas
--- NOTE | 2025-06-25 14:34 | CTR_ITS ---
PROCEDURE INFORMATION: Exam: CT Cervical Spine Without Contrast Exam date and time: 06/25/2025 3:39 PM Age: 24 years old Clinical indication: Injury or trauma; Other: Fall from horse; Blunt trauma TECHNIQUE: Imaging protocol: Computed tomography of the cervical spine without contrast. Radiation optimization: All CT scans at this facility use at least one of these dose optimization techniques: automated exposure control; mA and/or kV adjustment per patient size (includes targeted exams where dose is matched to clinical indication); or iterative reconstruction. COMPARISON: CT head wo con* [id number] 06/25/2025 3:39 PM RADIATION DOSE METRICS: Total DLP (mGy-cm): 196.9 FINDINGS: Bones: No acute fracture. Normal alignment. No significant disc bulge or herniation. No severe spinal canal stenosis. No significant neural foraminal narrowing. Lungs: Lung apices are normal. Soft tissues: Unremarkable. CT/CT cervical spin wo con* [id number] IMPRESSION: No acute cervical spine fracture.
[2025-06-25 15:46] VITALS: BP 112/70; PULSE 86; O2SAT 97
== END 2025-06-25 15:49 | disposition home or self-care (01) ==
PROVIDERS: Emergency Provider Physician Assistant; PCP Family Medicine
DX: S13.9XXA Sprain of joints and ligaments of unspecified parts of neck, initial encounter (principal); V80.010A Animal-rider injured by fall from or being thrown from horse in noncollision accident, initial encounter
CPT/HCPCS: 70450; 72072; 72125; 99284